=== PATIENT | female | born 1960 | race Two or more races ===

== ENCOUNTER 2019-12-19 06:26 | Inpatient (IN) | payer MEDICAID ==
[~2019-12-19] VITALS: Ht 175.3 cm; Wt 120.1 kg
[~2019-12-19 06:26] MED LIST: ATOR10TA52 PO; CHOL100047 PO; GABA300C10 PO; LISI30TA4 PO; METF-370 PO
[2019-12-19] MEDS ORDERED: ceFAZolin 1GM/50ML 100 ML IV ONE (07:24)
[2019-12-19] MEDS ORDERED: SODIUM CHLORIDE 0.9% 1,000 ML IV ONE (09:15)
[2019-12-19 10:03] LABS: Basophils # (auto) 0 10 ^3/uL (0-0.2); Basophils % (auto) 0.7 % (0.0-2.0); Eosinophils # (auto) 0.1 10 ^3/uL (0-0.8); Eosinophils % (auto) 1.4 % (0.0-7.0); Hemoglobin 12.3 g/dL (12.2-16.2); Lymphocytes # (auto) 1.3 10 ^3/uL (0.4-5.4); Lymphocytes % (auto) 18.1 % (10.0-50.0); Mean Corpuscular Hemoglobin 28.2 pg (28.0-32.0); Mean Corpuscular Hgb Conc. 32.4 g/dL (32.0-36.0); Monocytes # (auto) 0.6 10 ^3/uL (0-1.3); Monocytes % (auto) 8.8 % (0.0-12.0); Neutrophils # (auto) 4.9 10 ^3/uL (1.6-8.6); Platelet Count (auto) 256 10^3/uL (140-450); Red Blood Cells 4.37 10^6/uL (4.0-5.20); Red Cell Distribution Width 15.1 % (11.8-14.3)
[2019-12-19 10:12] LABS: Alanine Aminotransferase 16 U/L (13-56); Albumin 3.4 g/dL (3.4-5.0); Anion Gap 6 (5-15); Aspartate Aminotransferase 7 U/L (15-37); BUN/Creatinine Ratio 27.3; Blood Urea Nitrogen 27 mg/dL (7-18); Calcium 9.1 mg/dL (8.5-10.1); Carbon Dioxide 26 mmol/L (21-32); Chloride 103 mmol/L (98-107); GFR African American 74 mL/min; GFR Non-African American 61 mL/min; Glucose 176 mg/dL (74-106); Potassium 3.9 mmol/L (3.5-5.1); Sodium 135 mmol/L (136-145)
[2019-12-19 10:17] LABS: Alkaline Phosphatase 92 U/L (45-117); Bilirubin, Total 0.4 mg/dL (0.2-1.0); Total Protein 7.4 g/dL (6.4-8.2)
[2019-12-19] MEDS ORDERED: DIGOXIN (250MCG/ML) 2 ML AMPULE IV ONE (11:00)
[2019-12-19] MEDS ORDERED: CARVEDILOL 3.125 MG TAB PO ONE ×2 (11:00→16:15)
[2019-12-19] MEDS ORDERED: NITROGLYCERIN 0.4 MG SL TAB SL PRN (12:00)
[2019-12-19] MEDS ORDERED: MORPHINE SULF INJ 2 MG/ML SYRINGE 1ML IV PRN (12:00)
[2019-12-19] MEDS: SODIUM CHLORIDE 0.9% 1,000 ML IV SCH ×2 (12:39→18:42)
[2019-12-19 13:00] VITALS: BP 167/98
[2019-12-19] MEDS ORDERED: PROMETHAZINE HCL 25 MG/ML 1ML IV PRN (13:15)
[2019-12-19] MEDS ORDERED: DEXTROSE (50%) 50ML SYRG IV PRN (13:15)
[2019-12-19] MEDS ORDERED: HEPARIN DRIP/D5W 100UNITS/ML 250 ML IV SCH (13:26)
[2019-12-19 14:07] LABS: Hematocrit 36.6 % (36.0-46.0); Mean Corpuscular Hemoglobin 28.3 pg (28.0-32.0); Mean Corpuscular Hgb Conc. 32.8 g/dL (32.0-36.0); Mean Corpuscular Volume 86.2 fL (80.0-100.0); Platelet Count (auto) 231 10^3/uL (140-450); Red Blood Cells 4.25 10^6/uL (4.0-5.20); White Blood Cell 5.7 10^3/uL (4.4-10.8)
[2019-12-19 14:14] LABS: Band Neutrophils % (manual) 0; Basophils % (manual) 0 (0.0-2.0); Blast Cells 0; Eosinophils % (manual) 0 (0-7); Metamyelocytes % 0; Myelocytes % 0; Promyelocytes % 0; Reactive Lymphocytes 0
[2019-12-19] MEDS ORDERED: HEPARIN SODIUM (PORCINE) 5000 UNITS/ML 1ML VIAL IV ONE (14:15)
[2019-12-19 14:22] LABS: INR 1.13 (0.9-1.15); Partial Thromboplastin Time 26.6 sec (23.64-32.05)
[2019-12-19] MEDS: HYDROcodone-ACET 5/325MG TAB PO PRN (14:23)
[2019-12-19] MEDS: HEPARIN DRIP/D5W 100UNITS/ML 250 ML IV SCH (15:10)
[2019-12-19 15:45] VITALS: BP 163/98
[2019-12-19 16:46] LABS: Lymphocytes % (manual) 21 (10.0-50.0); Monocytes % (manual) 7 (0-12)
[2019-12-19] MEDS: InsuLIN REG 1unit/0.01ml Soln (100units/ml) SC SCH ×2 (17:00→22:27)
[2019-12-19] MEDS: ACCU-CHEK COMFORT CURVE STRIP VI SCH ×2 (17:19→22:27)
[2019-12-19 20:00] VITALS: BP 144/85
[2019-12-19] MEDS: CARVEDILOL 12.5 MG TAB PO SCH (21:49)
[2019-12-19] MEDS: ATORVASTATIN 20 MG TAB PO SCH (21:49)
[2019-12-19] MEDS: PANTOPRAZOLE 40 MG TAB PO SCH (21:50)
[2019-12-19] MEDS ORDERED: CARVEDILOL 12.5 MG TAB PO SCH (22:00)
[2019-12-19] MEDS ORDERED: CARVEDILOL 3.125 MG TAB PO SCH (22:00)
[2019-12-19 23:22] LABS: INR 1.23 (0.9-1.15)
[2019-12-19 23:25] LABS: Partial Thromboplastin Time 120.6 sec (23.64-32.05)
[2019-12-19] MEDS ORDERED: LISI-646 PO (23:32)
[2019-12-19 23:58] VITALS: BP 166/91
[2019-12-20] MEDS: ACETAMINOPHEN 325 MG TAB PO PRN ×2 (00:05→22:02)
[2019-12-20] MEDS: hydrALAZINE HCL 20 MG/ML VL IV PRN (00:05)
[2019-12-20] MEDS: SODIUM CHLORIDE 0.9% 1,000 ML IV SCH ×4 (00:13→18:14)
[2019-12-20] MEDS: HYDROcodone-ACET 5/325MG TAB PO PRN (01:50)
[2019-12-20 04:18] VITALS: BP 119/76
[2019-12-20] MEDS: HEPARIN DRIP/D5W 100UNITS/ML 250 ML IV SCH ×2 (04:39→07:12)
[2019-12-20 05:42] LABS: Basophils # (auto) 0.1 10 ^3/uL (0-0.2); Basophils % (auto) 0.8 % (0.0-2.0); Eosinophils # (auto) 0.1 10 ^3/uL (0-0.8); Eosinophils % (auto) 1.7 % (0.0-7.0); Hematocrit 34.2 % (36.0-46.0); Hemoglobin 11.3 g/dL (12.2-16.2); Lymphocytes # (auto) 1.3 10 ^3/uL (0.4-5.4); Lymphocytes % (auto) 17.3 % (10.0-50.0); Mean Corpuscular Hemoglobin 28.4 pg (28.0-32.0); Mean Corpuscular Volume 86.1 fL (80.0-100.0); Monocytes # (auto) 0.7 10 ^3/uL (0-1.3); Monocytes % (auto) 9.3 % (0.0-12.0); Neutrophils # (auto) 5.3 10 ^3/uL (1.6-8.6); Neutrophils % (auto) 70.9 % (37.0-80.0); Nucleated Red Blood Cells % 0.1 %; Platelet Count (auto) 232 10^3/uL (140-450); Red Blood Cells 3.97 10^6/uL (4.0-5.20); Red Cell Distribution Width 15.2 % (11.8-14.3); White Blood Cell 7.5 10^3/uL (4.4-10.8)
[2019-12-20 05:50] LABS: BUN/Creatinine Ratio 21.1; Calcium 8.6 mg/dL (8.5-10.1); Potassium 4.1 mmol/L (3.5-5.1)
[2019-12-20 05:53] LABS: INR 1.2 (0.9-1.15)
[2019-12-20 06:05] LABS: Partial Thromboplastin Time 82.3 sec (23.64-32.05)
[2019-12-20] MEDS: InsuLIN REG 1unit/0.01ml Soln (100units/ml) SC SCH ×4 (06:53→22:00)
[2019-12-20] MEDS: ACCU-CHEK COMFORT CURVE STRIP VI SCH ×4 (06:53→22:22)
[2019-12-20 07:40] VITALS: BP 120/82
[2019-12-20] MEDS: PANTOPRAZOLE 40 MG TAB PO SCH ×2 (09:57→22:01)
[2019-12-20] MEDS: CARVEDILOL 12.5 MG TAB PO SCH ×2 (09:58→22:00)
[2019-12-20] MEDS: amLODIPine BESYLATE 5 MG TAB PO SCH (09:58)
[2019-12-20 11:40] VITALS: BP 124/69
[2019-12-20] MEDS ORDERED: IOHEXOL 350 MG/ML 100ML IJ ONE (12:29)
[2019-12-20 13:03] LABS: INR 1.16 (0.9-1.15)
[2019-12-20 13:05] LABS: Partial Thromboplastin Time 99.1 sec (23.64-32.05)
[2019-12-20 15:50] VITALS: BP 123/75
[2019-12-20] MEDS: GABAPENTIN 300 MG CAP PO SCH ×2 (16:18→21:59)
[2019-12-20 20:00] VITALS: BP 132/81
[2019-12-20] MEDS ORDERED: ATORVASTATIN 20 MG TAB PO SCH (22:00)
[2019-12-20] MEDS: ATORVASTATIN 20 MG TAB PO SCH (22:01)
[2019-12-20 22:15] LABS: INR 1.13 (0.9-1.15); Partial Thromboplastin Time 27.2 sec (23.64-32.05)
[2019-12-21] VITALS (61 sets, daily range): BP systolic 62–154; BP diastolic 41–137
[2019-12-21] MEDS: SODIUM CHLORIDE 0.9% 1,000 ML IV SCH ×2 (01:35→14:00)
[2019-12-21 05:41] LABS: Basophils # (auto) 0.1 10 ^3/uL (0-0.2); Basophils % (auto) 1.2 % (0.0-2.0); Eosinophils # (auto) 0.1 10 ^3/uL (0-0.8); Eosinophils % (auto) 1.6 % (0.0-7.0); Hematocrit 33.2 % (36.0-46.0); Hemoglobin 10.9 g/dL (12.2-16.2); Lymphocytes # (auto) 1.2 10 ^3/uL (0.4-5.4); Lymphocytes % (auto) 21.8 % (10.0-50.0); Mean Corpuscular Hemoglobin 28.6 pg (28.0-32.0); Mean Corpuscular Hgb Conc. 32.7 g/dL (32.0-36.0); Mean Corpuscular Volume 87.3 fL (80.0-100.0); Monocytes # (auto) 0.6 10 ^3/uL (0-1.3); Monocytes % (auto) 11.2 % (0.0-12.0); Neutrophils # (auto) 3.5 10 ^3/uL (1.6-8.6); Neutrophils % (auto) 64.2 % (37.0-80.0); Platelet Count (auto) 216 10^3/uL (140-450); Red Cell Distribution Width 15.1 % (11.8-14.3); White Blood Cell 5.5 10^3/uL (4.4-10.8)
[2019-12-21 05:53] LABS: Calcium 8.4 mg/dL (8.5-10.1); Potassium 4.1 mmol/L (3.5-5.1)
[2019-12-21] MEDS: GABAPENTIN 300 MG CAP PO SCH ×3 (06:00→22:23)
[2019-12-21] MEDS ORDERED: MEPERIDINE HCL (25 MG/ML) 1ML VIAL ONE (06:54)
[2019-12-21] MEDS ORDERED: fentaNYL CITRATE 100 MCG/2 ML VL ONE ×2 (06:54→08:23)
[2019-12-21] MEDS ORDERED: PROPOFOL 10 MG/ML 20 ML IV ONE (06:55)
[2019-12-21] MEDS ORDERED: MIDAZOLAM HCL 1MG/1ML-2 ML VIAL ONE ×2 (06:55→08:23)
[2019-12-21] MEDS ORDERED: SODIUM CHLORIDE LOCK 10 ML ONE (06:55)
[2019-12-21] MEDS ORDERED: ROCURONIUM 10MG/ML 10ML VIAL IV ONE (06:55)
[2019-12-21] MEDS ORDERED: ONDANSETRON HCL 4 MG/2 ML VIAL ONE (06:55)
[2019-12-21] MEDS ORDERED: SUCCINYLCHOLINE CHLORIDE 20 MG/ML 10ML VIAL IV ONE ×2 (06:58→07:16)
[2019-12-21] MEDS: InsuLIN REG 1unit/0.01ml Soln (100units/ml) SC SCH ×4 (07:00→22:00)
[2019-12-21] MEDS ORDERED: VANCOMYCIN HCL 1000 MG VL ONE ×2 (07:01→07:03)
[2019-12-21] MEDS ORDERED: ceFAZolin 1GM VL ONE (07:03)
[2019-12-21] MEDS ORDERED: ceFAZolin 1GM/50ML 100 ML IV ONE (07:06)
[2019-12-21] MEDS ORDERED: LIDOCAINE 1% HCL (LOCAL ANESTH.) INJ 20ML MDV ONE (07:09)
[2019-12-21] MEDS: ACCU-CHEK COMFORT CURVE STRIP VI SCH ×4 (07:33→22:00)
[2019-12-21] MEDS ORDERED: VANCOMYCIN PER PHARMACY 0 MG IV SCH (08:30)
[2019-12-21] MEDS ORDERED: NOREPINEPHRINE 8 MG/250ML KIT 250 ML IV ONE (08:38)
[2019-12-21] MEDS: NOREPINEPHRINE 8 MG/250ML KIT 250 ML IV SCH (08:40)
[2019-12-21] MEDS ORDERED: ATROPINE SULFATE 0.4 MG/1 ML VIAL ONE (09:27)
[2019-12-21] MEDS ORDERED: FUROSEMIDE 20 MG/2 ML VIAL ONE (09:27)
[2019-12-21] MEDS ORDERED: EPINEPHrine HCL 1 MG/1 ML AMP ONE (09:27)
[2019-12-21] MEDS: CARVEDILOL 12.5 MG TAB PO SCH (10:00)
[2019-12-21] MEDS: amLODIPine BESYLATE 5 MG TAB PO SCH (10:00)
[2019-12-21] MEDS: MIDAZOLAM DRIP 50 mg/50mL 50 ML IV SCH ×2 (10:00→21:30)
[2019-12-21] MEDS: CHOLECALCIFEROL (VITD3) 1,000IU=25mCg TAB PO SCH (10:00)
[2019-12-21] MEDS: PANTOPRAZOLE 40 MG TAB PO SCH (10:00)
[2019-12-21] MEDS ORDERED: ATROPINE SULF 1 MG/10ml SYR IV ONE (12:33)
[2019-12-21] MEDS ORDERED: CALCIUM CHLOR(10%) 100MG/ML 10ML SYRINGE IV ONE (12:33)
[2019-12-21] MEDS ORDERED: SODIUM BICARBONATE 8.4% INJ 50ML SYRINGE IV ONE (12:33)
[2019-12-21] MEDS ORDERED: EPINEPHrine HCL 1 MG/10 ML SYRG IV ONE (12:33)
[2019-12-21] MEDS: PIPERACILLIN-TAZOB 3.375GM 100 ML IV SCH ×2 (12:41→18:00)
[2019-12-21] MEDS: VANCOMYCIN 1GM/250ML 250 ML IV SCH (22:22)
[2019-12-21] MEDS: ATORVASTATIN 20 MG TAB PO SCH (22:23)
[2019-12-22] VITALS (54 sets, daily range): BP systolic 69–176; BP diastolic 59–139
[2019-12-22] MEDS: PIPERACILLIN-TAZOB 3.375GM 100 ML IV SCH ×4 (00:19→18:14)
[2019-12-22] MEDS: SODIUM CHLORIDE 0.9% 1,000 ML IV SCH ×2 (02:50→15:52)
[2019-12-22 04:28] LABS: Basophils # (auto) 0.1 10 ^3/uL (0-0.2); Basophils % (auto) 0.6 % (0.0-2.0); Eosinophils # (auto) 0.1 10 ^3/uL (0-0.8); Eosinophils % (auto) 1.1 % (0.0-7.0); Hemoglobin 10.7 g/dL (12.2-16.2); Lymphocytes # (auto) 1.4 10 ^3/uL (0.4-5.4); Lymphocytes % (auto) 15.8 % (10.0-50.0); Mean Corpuscular Hemoglobin 27.9 pg (28.0-32.0); Mean Corpuscular Hgb Conc. 32.4 g/dL (32.0-36.0); Mean Corpuscular Volume 86.2 fL (80.0-100.0); Monocytes # (auto) 0.9 10 ^3/uL (0-1.3); Monocytes % (auto) 10.4 % (0.0-12.0); Neutrophils # (auto) 6.4 10 ^3/uL (1.6-8.6); Neutrophils % (auto) 72.1 % (37.0-80.0); Nucleated Red Blood Cells % 0.1 %; Platelet Count (auto) 189 10^3/uL (140-450); Red Blood Cells 3.83 10^6/uL (4.0-5.20); Red Cell Distribution Width 15.3 % (11.8-14.3); White Blood Cell 8.8 10^3/uL (4.4-10.8)
[2019-12-22 04:45] LABS: BUN/Creatinine Ratio 17.1; Calcium 8.3 mg/dL (8.5-10.1)
[2019-12-22] MEDS: InsuLIN REG 1unit/0.01ml Soln (100units/ml) SC SCH ×4 (06:00→22:00)
[2019-12-22] MEDS: GABAPENTIN 300 MG CAP PO SCH ×3 (06:17→21:55)
[2019-12-22] MEDS: ACCU-CHEK COMFORT CURVE STRIP VI SCH ×4 (06:18→22:02)
[2019-12-22] MEDS: CHOLECALCIFEROL (VITD3) 1,000IU=25mCg TAB PO SCH (10:00)
[2019-12-22] MEDS: PANTOPRAZOLE 40 MG/10 ML VIAL INJ IV SCH (10:16)
[2019-12-22] MEDS: NOREPINEPHRINE 8 MG/250ML KIT 250 ML IV SCH (10:35)
[2019-12-22] MEDS: VANCOMYCIN 1GM/250ML 250 ML IV SCH (16:00)
[2019-12-22] MEDS: hydrALAZINE HCL 20 MG/ML VL IV PRN (18:14)
[2019-12-22] MEDS: HYDROcodone-ACET 5/325MG TAB PO PRN (20:17)
[2019-12-22] MEDS ORDERED: levoFLOXacin 500MG 100 ML IV ONE (21:45)
[2019-12-22] MEDS: ATORVASTATIN 20 MG TAB PO SCH (21:55)
[2019-12-22] MEDS: CLINDAMYCIN 600MG IV 50 ML IV SCH (22:02)
[2019-12-23] VITALS (11 sets, daily range): BP systolic 112–149; BP diastolic 56–72
[2019-12-23] MEDS: HYDROcodone-ACET 5/325MG TAB PO PRN ×3 (03:55→18:44)
[2019-12-23 04:10] LABS: Basophils # (auto) 0.1 10 ^3/uL (0-0.2); Basophils % (auto) 1.2 % (0.0-2.0); Eosinophils # (auto) 0.2 10 ^3/uL (0-0.8); Eosinophils % (auto) 2.3 % (0.0-7.0); Hematocrit 31.7 % (36.0-46.0); Hemoglobin 10.3 g/dL (12.2-16.2); Lymphocytes % (auto) 9.6 % (10.0-50.0); Mean Corpuscular Hemoglobin 28.1 pg (28.0-32.0); Mean Corpuscular Hgb Conc. 32.4 g/dL (32.0-36.0); Mean Corpuscular Volume 86.7 fL (80.0-100.0); Monocytes # (auto) 1.2 10 ^3/uL (0-1.3); Monocytes % (auto) 11.4 % (0.0-12.0); Neutrophils % (auto) 75.5 % (37.0-80.0); Platelet Count (auto) 166 10^3/uL (140-450); Red Blood Cells 3.66 10^6/uL (4.0-5.20); Red Cell Distribution Width 15.2 % (11.8-14.3); White Blood Cell 10.6 10^3/uL (4.4-10.8)
[2019-12-23 04:39] LABS: Calcium 8.4 mg/dL (8.5-10.1); Magnesium 1.6 mg/dL (1.6-2.6); Potassium 3.9 mmol/L (3.5-5.1)
[2019-12-23 04:41] LABS: BUN/Creatinine Ratio 19.9
[2019-12-23] MEDS: SODIUM CHLORIDE 0.9% 1,000 ML IV SCH ×2 (05:30→17:28)
[2019-12-23] MEDS: CLINDAMYCIN 600MG IV 50 ML IV SCH (05:32)
[2019-12-23] MEDS: GABAPENTIN 300 MG CAP PO SCH ×3 (05:32→22:33)
[2019-12-23] MEDS: InsuLIN REG 1unit/0.01ml Soln (100units/ml) SC SCH ×4 (07:00→22:39)
[2019-12-23] MEDS: ACCU-CHEK COMFORT CURVE STRIP VI SCH ×4 (07:00→22:38)
[2019-12-23] MEDS: PANTOPRAZOLE 40 MG/10 ML VIAL INJ IV SCH (11:24)
[2019-12-23] MEDS: CHOLECALCIFEROL (VITD3) 1,000IU=25mCg TAB PO SCH (11:25)
[2019-12-23] MEDS: MAGNESIUM SULFATE 1GM/100ML 100 ML IV SCH ×2 (11:26→15:03)
[2019-12-23 14:52] LABS: INR 1.19 (0.9-1.15); Partial Thromboplastin Time 32.8 sec (23.64-32.05)
[2019-12-23 15:41] LABS: Protein, Urine 52.3 mg/dL (0.0-11.9)
[2019-12-23] MEDS ORDERED: ERTAPENEM SOD INJ 1 GM in SODIUM CHL 0.9% 50 ML IV ONE (16:00)
[2019-12-23] MEDS ORDERED: DOCUSATE SOD 100 MG CAP PO PRN (16:15)
[2019-12-23 19:02] LABS: Urine Bacteria FEW /hpf (None Seen); Urine Blood Negative /uL (Negative); Urine Specific Gravity 1.021 (1.001-1.035); Urine WBC 3 /hpf (0 - 5)
[2019-12-23] MEDS ORDERED: levoFLOXacin 250MG 50 ML IV ONE (21:45)
[2019-12-23] MEDS ORDERED: LIDOCAINE 1% (LOCAL ANESTH.) PF 5ml SDV ID ONE (22:15)
[2019-12-23] MEDS: ATORVASTATIN 20 MG TAB PO SCH (22:33)
[2019-12-23] MEDS: ACETAMINOPHEN 325 MG TAB PO PRN (22:47)
[2019-12-24 05:30] VITALS: BP 142/66
[2019-12-24] MEDS: HYDROcodone-ACET 5/325MG TAB PO PRN ×2 (06:17→18:28)
[2019-12-24] MEDS: GABAPENTIN 300 MG CAP PO SCH ×3 (06:17→21:57)
[2019-12-24] MEDS: InsuLIN REG 1unit/0.01ml Soln (100units/ml) SC SCH ×4 (06:42→21:57)
[2019-12-24] MEDS: ACCU-CHEK COMFORT CURVE STRIP VI SCH ×4 (06:42→21:57)
[2019-12-24] MEDS: ACETAMINOPHEN 325 MG TAB PO PRN ×2 (08:36→22:29)
[2019-12-24] MEDS: SODIUM CHLORIDE 0.9% 1,000 ML IV SCH ×2 (08:36→21:30)
[2019-12-24 09:00] VITALS: BP 137/70
[2019-12-24] MEDS: ERTAPENEM SOD INJ 1 GM in SODIUM CHL 0.9% 50 ML IV SCH (10:00)
[2019-12-24] MEDS: CHOLECALCIFEROL (VITD3) 1,000IU=25mCg TAB PO SCH (10:46)
[2019-12-24] MEDS: SODIUM CHLOR 0.9% PF (SALINE LOCK) 10ML VIAL/SYR IV SCH ×2 (10:46→21:58)
[2019-12-24] MEDS: PANTOPRAZOLE 40 MG/10 ML VIAL INJ IV SCH (10:46)
[2019-12-24 11:30] LABS: Basophils # (auto) 0 10 ^3/uL (0-0.2); Basophils % (auto) 0.4 % (0.0-2.0); Eosinophils # (auto) 0.2 10 ^3/uL (0-0.8); Eosinophils % (auto) 2.6 % (0.0-7.0); Hematocrit 29.6 % (36.0-46.0); Hemoglobin 9.6 g/dL (12.2-16.2); Lymphocytes # (auto) 0.9 10 ^3/uL (0.4-5.4); Lymphocytes % (auto) 12.9 % (10.0-50.0); Mean Corpuscular Hemoglobin 27.9 pg (28.0-32.0); Mean Corpuscular Hgb Conc. 32.4 g/dL (32.0-36.0); Mean Corpuscular Volume 86.2 fL (80.0-100.0); Monocytes # (auto) 0.9 10 ^3/uL (0-1.3); Monocytes % (auto) 12.7 % (0.0-12.0); Neutrophils # (auto) 5.2 10 ^3/uL (1.6-8.6); Neutrophils % (auto) 71.4 % (37.0-80.0); Platelet Count (auto) 150 10^3/uL (140-450); Red Blood Cells 3.43 10^6/uL (4.0-5.20); Red Cell Distribution Width 15.5 % (11.8-14.3); White Blood Cell 7.3 10^3/uL (4.4-10.8)
[2019-12-24 11:48] LABS: Calcium 8.2 mg/dL (8.5-10.1); Magnesium 2.1 mg/dL (1.6-2.6); Potassium 4.1 mmol/L (3.5-5.1)
[2019-12-24 11:50] LABS: BUN/Creatinine Ratio 22.4; Phosphorus 3.1 mg/dL (2.5-4.90)
[2019-12-24 13:00] VITALS: BP 140/72
[2019-12-24 17:00] VITALS: BP 151/71
[2019-12-24] MEDS: ATORVASTATIN 20 MG TAB PO SCH (21:57)
[2019-12-24 22:00] VITALS: BP 149/80
[2019-12-25] MEDS: HYDROcodone-ACET 5/325MG TAB PO PRN ×4 (00:35→20:37)
[2019-12-25 05:00] VITALS: BP 134/59
[2019-12-25] MEDS: ACCU-CHEK COMFORT CURVE STRIP VI SCH ×3 (06:30→17:00)
[2019-12-25] MEDS: InsuLIN REG 1unit/0.01ml Soln (100units/ml) SC SCH ×3 (06:30→17:00)
[2019-12-25] MEDS: GABAPENTIN 300 MG CAP PO SCH ×2 (06:40→13:18)
[2019-12-25 09:00] VITALS: BP 134/65
[2019-12-25] MEDS: PANTOPRAZOLE 40 MG/10 ML VIAL INJ IV SCH (09:36)
[2019-12-25] MEDS: ERTAPENEM SOD INJ 1 GM in SODIUM CHL 0.9% 50 ML IV SCH (09:36)
[2019-12-25] MEDS: CHOLECALCIFEROL (VITD3) 1,000IU=25mCg TAB PO SCH (09:37)
[2019-12-25] MEDS: SODIUM CHLORIDE 0.9% 1,000 ML IV SCH (09:37)
[2019-12-25] MEDS: SODIUM CHLOR 0.9% PF (SALINE LOCK) 10ML VIAL/SYR IV SCH (09:37)
[2019-12-25 13:00] VITALS: BP 151/70
[2019-12-25] MEDS ORDERED: AMLO5TAB15 PO (14:50)
[2019-12-25] MEDS ORDERED: INVANZ IV (14:50)
[2019-12-25] MEDS ORDERED: ATOR20TA50 PO (14:50)
[2019-12-25 17:01] VITALS: BP 151/85
[2019-12-25 19:50] VITALS: BP 165/70
== END 2019-12-25 21:45 | disposition home health service (06) | DRG 320 ==
LOC: SUR 06:26 → DOU IN ICU 06:27 → ICU WEST 12-21 08:35 → WEST WING 12-23 16:01 → TELE-WESTW 12-24 08:26
PROVIDERS: ADMIT Orthopaedic Surgery Adult Reconstructive Orthopaedic Surgery; ATTEND Internal Medicine
PROC: 0QPG04Z Removal of Internal Fixation Device from Right Tibia, Open Approach (ICD-10-PCS; 2019-12-21)
PROC: 0BH17EZ Insertion of Endotracheal Airway into Trachea, Via Natural or Artificial Opening (ICD-10-PCS; 2019-12-21)
PROC: 3E033XZ Introduction of Vasopressor into Peripheral Vein, Percutaneous Approach (ICD-10-PCS; 2019-12-21)
PROC: 5A12012 Performance of Cardiac Output, Single, Manual (ICD-10-PCS; 2019-12-21)
PROC: 5A1935Z Respiratory Ventilation, Less than 24 Consecutive Hours (ICD-10-PCS; principal; 2019-12-21 07:10)
PROC: 02HV33Z Insertion of Infusion Device into Superior Vena Cava, Percutaneous Approach (ICD-10-PCS; 2019-12-23)
DX: M00.871 Arthritis due to other bacteria, right ankle and foot (principal); N17.0 Acute kidney failure with tubular necrosis; J96.01 Acute respiratory failure with hypoxia; J81.0 Acute pulmonary edema; R57.0 Cardiogenic shock; I47.2 Ventricular tachycardia; J18.9 Pneumonia, unspecified organism; I48.91 Unspecified atrial fibrillation; B96.1 Klebsiella pneumoniae [K. pneumoniae] as the cause of diseases classified elsewhere; S91.001A Unspecified open wound, right ankle, initial encounter; E11.42 Type 2 diabetes mellitus with diabetic polyneuropathy; E66.01 Morbid (severe) obesity due to excess calories; E78.5 Hyperlipidemia, unspecified; N14.1 Nephropathy induced by other drugs, medicaments and biological substances; E83.42 Hypomagnesemia; T50.8X5A Adverse effect of diagnostic agents, initial encounter; Z68.39 Body mass index [BMI] 39.0-39.9, adult; Z16.12 Extended spectrum beta lactamase (ESBL) resistance
CPT/HCPCS: 36415; 36600; 71045; 71275; 76775; 80048; 80053; 80202; 81001; 82570; 82805; 82962; 83036; 83605; 83735; 84100; 84156; 84300; 84484; 85007; 85025; 85027; 85610; 85730; 86850; 86900; 86901; 87040; 87070; 87075; 87076; 87077; 87081; 87186; 87205; 92950; 93306; 94002; 94003; 94640; 97163; C9113; G0378; J0171; J0330; J0461; J0690; J1335; J1815; J1956; J2001; J2250; J2405; J2543; J2704; J3490